=== PATIENT | female | born 1965 | race African-American/Black ===

== ENCOUNTER 2018-07-09 15:14 | Emergency (ER) | payer MEDICAID, SELFPAY ==
[2018-07-09 15:23] VITALS: BP 129/78; PULSE 98; RESP 14; TEMP 36.6; O2SAT 99; BMI 31.1
--- NOTE | 2018-07-09 15:43 | ED.VISSUMM ---
- ER Visit Summary Date of Service: 07/09/18 Chief Complaint: Wants STD check History of Present Illness: The patient is a 52 F presenting with concern for STD. She states she had unprotected sex a couple of weeks ago. She is now experiencing mild white vaginal discharge. She has itching sensation. She denies pain or burning. Denies urinary complaints. Denies fever. Denies abdominal pain. Denies other complaints. Physical Examination: Vitals are stable. Patient is afebrile. Alert no acute distress. HEENT exam is unremarkable. Neck is supple. Lungs are clear and equal bilaterally. Heart is regular rate and rhythm. Abdomen is soft nontender nondistended. : Small amount of white vaginal discharge, no rash, no cervical motion tenderness, no adnexal tenderness. Extremities are unremarkable. Skin is warm and dry. Remainder of exam is unremarkable. Emergency Department Course and Treatment: Gonorrhea and Chlamydia and HIV were sent. She was given Rocephin IM and Zithromax po. She is given prescription for Diflucan. Urinalysis is pending. Patient states she needs to leave the ED. urinalysis returned with 0-5 white blood cells, 0-5 red blood cells. I called the patient to advise her that her urinalysis does not require antibiotics. She will follow-up with her primary care physician. She is advised to return to the ED for worsening complaints. Disposition: Discharge home Impression: Vaginal discharge, concern for STD This note was generated with [employer] dictation software. It may contain incorrect words, spelling, and punctuation that were not noted in review of the chart prior to signing ED Disposition - Plan for ED Patient: Disposition: Home or Assisted Living Chief Complaint: Complaint Instructions: What Are Sexually Transmitted Diseases (STDs)? Prescriptions: Fluconazole [Diflucan] 150 mg PO X1 #1 tablet Referrals: Katie Boo RN [Primary Care Provider] -
--- NOTE | 2018-07-09 17:00 | ED.DEP ---
ED Disposition - Plan for ED Patient: Chief Complaint: Complaint Instructions: What Are Sexually Transmitted Diseases (STDs)? Prescriptions: Fluconazole [Diflucan] 150 mg PO X1 #1 tablet Referrals: Katie Boo RN [Primary Care Provider] -
[2018-07-09] MEDS: Azithromycin 250 MG Tablet 1000 MG PO (17:05)
[2018-07-09] MEDS: Ceftriaxone 500 MG Vial 250 MG IM (17:22)
[2018-07-09 17:25] VITALS: BP 138/74; PULSE 62; RESP 15; O2SAT 97
[2018-07-09 17:34] LABS: Color, Urine Yellow (Yellow); Glucose, Dipstick Normal (Normal); Ketone-Dipstick Negative (Negative); Leukocyte Esterase-Dipstick 25 /ul (Negative); Nitrite-Dipstick Negative (Negative); Occult Blood-Urine 10 /ul (Negative); Protein-Dipstick Negative (Negative); Specific Gravity, Urine 1.025 (1.002-1.030); Urine Bilirubin Dipstick Negative (Negative); Urine Clarity Sl. Cloudy (Clear); Urine Urobilinogen 1 mg/dl (Normal)
[2018-07-09 17:40] LABS: Chlamydia Trachomatis by PCR Negative (Negative); Neisserai gonorrhoeae by PCR Negative (Negative); Probe Check PASS; Sample Adequacy Control PASS; Specimen Processing Control PASS
[2018-07-09 17:46] LABS: Bacteria RARE /hpf (None Seen); Mucous, Urine RARE /hpf (<or=2+); Red Blood Cells-Urine 0-5 SEEN /hpf (0-5); Squamous Epithelial Cells - UA 0-5 SEEN /hpf (5-10); White Blood Cells 0-5 SEEN /hpf (0-5)
[2018-07-09 18:36] LABS: HIV - WCH Non-Reactive (Nonreactive)
== END 2018-07-09 17:29 | disposition home or self-care (01) ==
PROVIDERS: Emergency Provider Emergency Medicine
DX: N89.8 Other specified noninflammatory disorders of vagina (principal); Z11.3 Encounter for screening for infections with a predominantly sexual mode of transmission; F41.9 Anxiety disorder, unspecified; Z72.0 Tobacco use; Z00.01 Encounter for general adult medical examination with abnormal findings; Z13.220 Encounter for screening for lipoid disorders
CPT/HCPCS: 80053; 80061; 81001; 85027; 86703; 87491; 87591; 96372; 99282

== ENCOUNTER → 2018-07-09 16:25 | Outpatient (CLI) | payer MEDICAID, SELFPAY ==
[2018-07-09 15:23] VITALS: BMI 31.1
[2018-07-09 16:39] LABS: Hematocrit 44.3 % (37-47); Hemoglobin 14.6 g/dl (12.0-15.0); Mean Platelet Vol. 11.3 fl (6.2-12.0); Platelet Count 298 K/mm3 (150-450); RBC Distribution Width CV 13.9 % (11.6-14.6); RBC Distribution Width SD 45.8 fl (35.1-43.9); Red Blood Count 4.87 M/mm3 (4.2-5.4)
[2018-07-09 16:40] LABS: Scan Indicated on CBC? Y/N NO
[2018-07-09 16:54] LABS: AST(SGOT) 13 U/L (15-37); Alanine Aminotransfer ALT/SGPT 19 U/L (13-56); Albumin, Serum 3.9 g/dL (3.2-5.0); Alkaline Phosphatase 97 U/L (45-117); Anion Gap 11 (5-15); BUN 13 mg/dL (7-18); BUN/Creat Ratio 14.9 RATIO (10-20); Calcium,Total 8.8 mg/dL (8.5-10.1); Chloride 108 mmol/L (98-107); Cholesterol 276 mg/dL (200); Creatinine, Serum 0.87 mg/dL (0.55-1.02); EST Glomerular Filtration Rate 72 mL/min (>60); Est Glom Filt Rate - Afr Amer 87 mL/min (>60); Globulin 3.9 g/dL (2.2-4.2); Glucose 72 mg/dL (74-106); High Density Lipoprotein 54 mg/dL; Protein, Total 7.8 g/dL (6.4-8.2); Sodium Level 144 mmol/L (136-145); Triglycerides 200 mg/dL; Very Low Density Lipoprotein 40 mg/dL (5-40)
== END ==
DX: Z00.01 Encounter for general adult medical examination with abnormal findings (principal); Z13.220 Encounter for screening for lipoid disorders
CPT/HCPCS: 80053; 80061; 85027